=== PATIENT | female | born 1980 | race African-American/Black ===

== ENCOUNTER 2016-12-30 09:56 | Emergency (ER) | payer OTHER ==
[~2016-12-30] VITALS: Ht 177.8 cm; Wt 104.3 kg
--- NOTE | 2016-12-30 10:00 | NUR ---
PRESENTS SELF TO ED DT LOWER BACK PAIN, ACHING,NON RADIATING, 10/10 X 4 DAYS. PATIENT DENIES ANY RECENT INJURY NOR TRAUMA. PT IS AMBULATORY. SKIN IS WARM TO TOUCH AND NON DIAPHORETIC. AFEBRILE. VSS
[2016-12-30] MEDS ORDERED: HYDROCODONE/APAP 5/325MG 1 EACH TABLET ONE (10:13)
[2016-12-30] MEDS ORDERED: IBUPROFEN 400 MG TABLET ONE (10:13)
[2016-12-30] MEDS ORDERED: IBUPROFEN 400 MG TABLET PO ONE (10:30)
[2016-12-30] MEDS ORDERED: HYDROCODONE/APAP 5/325MG 1 EACH TABLET PO ONE (10:30)
[2016-12-30 10:43] LABS: APPEARANCE,URINE Clear (CLEAR); BILIRUBIN,URINE Negative (NEGATIVE); BLOOD, URINE Negative Ery/uL (NEGATIVE); COLOR,URINE Yellow (YELLOW); KETONES,URINE Negative (NEGATIVE); LEUKOCYTE ESTERASE ,URINE Trace (NEGATIVE); NITRITE, URINE Negative (NEGATIVE); PROTEIN,URINE Negative (NEGATIVE); UGLUCOSE Negative (NEGATIVE); UROBILINOGEN,URINE 0.2 EU/dL (0.2)
[2016-12-30 10:53] LABS: BACTERIA,URINE Rare /HPF (None Seen); RBC,URINE 0-2 /HPF (0-2); SQUAMOUS EPITHELIAL CELL,UR Few /HPF (None Seen); WBC,URINE 0-2 /HPF (0-3)
[2016-12-30 11:09] VITALS: BP 130/70
--- NOTE | 2016-12-30 11:09 | NUR ---
Patient discharged to home in stable condition. Written and verbal after care instructions given. Patient verbalizes understanding of instruction.
== END 2016-12-30 11:09 | disposition home or self-care (01) ==
LOC: ER 09:59
DX: M54.42 Lumbago with sciatica, left side (principal)
CPT/HCPCS: 81001; 99283; A4606; Z7610; 81000-TC